=== PATIENT | female | born 1935 | race Caucasian/White ===

== ENCOUNTER 2019-01-27 14:26 | Inpatient (IN) ==
[2019-01-27] MEDS ORDERED: NS 1,000 ML IV ONE ×2 (16:29→23:41)
[2019-01-27] MEDS ORDERED: TYLENOL PO ONE (16:30)
[2019-01-27 16:54] LABS: BASO# 0.01 X1000 (0.0-0.2); BASO% 0.1 % (0.0-0.8); EOS# 0.04 X1000 (0.0-0.7); EOS% 0.5 % (0.0-10.0); HEMATOCRIT 34.6 % (37.0-47.0); HEMOGLOBIN 11.6 g/dL (12.0-16.0); IMM GRAN# 0.02 X1000 (0.0-0.04); IMM GRAN% 0.2 % (0.0-0.5); LYMPH# 0.98 X1000 (1.2-3.4); LYMPH% 12.1 % (20.5-51.1); MCH 29.4 PG (27-31); MCHC 33.5 g/dL (33-37); MCV 87.8 FL (81-99); MONO# 1.08 X1000 (0.11-0.59); MONO% 13.3 % (1.7-9.3); MPV 8.7 FL (7.4-10.4); NEUT# 5.98 X1000 (1.4-6.5); NEUT% 73.8 % (42.2-75.2); PLT 273 X1000 (130-400); RBC 3.94 XMIL (4.2-5.4); RDW 13.5 % (11.5-14.5); WBC 8.11 X1000 (4.8-10.8)
--- NOTE | 2019-01-27 17:17 | EKG Report ---
Test Performed on : 01/27/2019 4:49:43 PM Test Reason : FALLS Blood Pressure : / mmHG Vent. Rate : 079 BPM Atrial Rate : 079 BPM P-R Int : 186 ms QRS Dur : 114 ms QT Int : 406 ms P-R-T Axes : 070 -06 065 degrees QTc Int : 465 ms Normal sinus rhythm. Anterior infarct , age undetermined Abnormal ECG When compared with ECG of 10-NOV-2018 10:28, No significant change was found Unconfirmed Result
[2019-01-27 17:18] LABS: ESTIMATED GFR > 60
[2019-01-27 17:26] LABS: AGAP 12; ALBUMIN 3.6 g/dL (3.5-5.0); ALKALINE PHOSPHATASE 204 U/L (32-104); BUN 10 mg/dL (8-22); CALCIUM 8.3 mg/dL (8.8-10.2); CHLORIDE 89 mmol/L (98-107); COSMO 253; CREATININE 0.7 mg/dL (0.5-0.9); GLUCOSE 115 mg/dL (70-104); GOT 46 U/L (10-30); GPT 25 U/L (10-36); MAGNESIUM 1.9 mg/dL (1.5-2.7); POTASSIUM 3.6 mmol/L (3.5-5.1); SODIUM 126 mmol/L (136-145); TCO2 25 mmol/L (25-35); TOTAL PROTEIN 6.4 g/dL (6.3-8.3)
--- NOTE | 2019-01-27 17:58 | Diag Imaging Result Doc PS360 ---
CT HEAD W/O CONTRAST - 01/27/2019 INDICATION: MULTIPLE FALL COMPARISON: 07/24/2015 FINDINGS: The ventricles and sulci are normal in size and contour. There is some trace periventricular white matter hypodensity most compatible with chronic microvascular disease. No intracranial mass or hemorrhage. The skull is intact. The sinuses are clear. IMPRESSION: Trace periventricular white matter chronic microvascular disease. No acute disease. This exam was performed using automated exposure control, adjustment of mA or kV according to patient size, and/or use of iterative reconstruction technique Electronically signed by Martell Landeros 01/27/2019 5:56 PM
--- NOTE | 2019-01-27 18:34 | Diag Imaging Result Doc PS360 ---
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 There is a right total hip arthroplasty in good position. Vertebral body heights are preserved. No fracture or subluxation. There is mild multilevel degenerative disc disease. There is moderate degeneration of the sacroiliac joints. IMPRESSION: No acute injury. Electronically signed by Martell Landeros 01/27/2019 6:32 PM
--- NOTE | 2019-01-27 18:35 | Diag Imaging Result Doc PS360 ---
HIP W/PELVIS BILAT 2 VIEWS - 01/27/2019 INDICATION: MULTIPLE FALL PELVIC PAIN; HX OF PELVIC FRACTURE TECHNIQUE: Five views COMPARISON: 08/19/2015 FINDINGS: There are displaced fractures through the left superior and inferior pubic rami. No visible hip fracture. No dislocation. There is a right hip arthroplasty in good position. IMPRESSION: Displaced fractures through the left superior and inferior pubic rami. Electronically signed by Martell Landeros 01/27/2019 6:33 PM
[2019-01-27 18:54] LABS: BILIRUBIN URINE NEGATIVE (NEGATIVE); BLOOD URINE NEGATIVE (NEGATIVE); CLARITY CLEAR (CLEAR); COLOR YELLOW; GLUCOSE URINE NEGATIVE (NEGATIVE); KETONE URINE TRACE mg/dL (NEGATIVE); LEUKOCYTES URINE 1+ (NEGATIVE); NITRITE URINE NEGATIVE (NEGATIVE); PROTEIN URINE NEGATIVE (NEGATIVE); SP GRAVITY URINE 1.005; UROBILINOGEN URINE NORMAL
[2019-01-27 19:11] LABS: URINE BACTERIA 2+ /HFP; URINE CAST NONE SEEN /LPF; URINE CRYSTAL NONE SEEN /HPF; URINE EPITHELIAL CELLS <10 /HPF (<10); URINE SOURCE CLEAN CATCH; URINE YEAST NONE SEEN /HPF
[2019-01-27] MEDS ORDERED: BLISTEX MEDICATED BERRY LIP BALM TOP PRN (22:19)
[2019-01-27 23:19] LABS: VITAMIN D 25 HYDROXY 24.3 NG/DL
[2019-01-27] MEDS ORDERED: TYLENOL PO PRN (23:41)
[2019-01-27] MEDS ORDERED: ZOFRAN IV PRN (23:41)
[2019-01-27] MEDS ORDERED: TYLENOL ARTHRITIS PO PRN (23:43)
[2019-01-28] MEDS: ATIVAN PO SCH ×2 (01:26→22:11)
[2019-01-28] MEDS: ARICEPT PO SCH ×3 (01:26→22:12)
[2019-01-28 01:49] LABS: AGAP 10; BUN 6 mg/dL (8-22); CALCIUM 7.9 mg/dL (8.8-10.2); CHLORIDE 94 mmol/L (98-107); COSMO 261; CREATININE 0.6 mg/dL (0.5-0.9); ESTIMATED GFR > 60; GLUCOSE 111 mg/dL (70-104); SODIUM 131 mmol/L (136-145); TCO2 27 mmol/L (25-35)
[2019-01-28] MEDS: SYNTHROID PO SCH (06:17)
[2019-01-28] MEDS ORDERED: KLOR-CON PO ONE (06:55)
[2019-01-28 06:57] LABS: AGAP 11; BUN 5 mg/dL (8-22); CALCIUM 7.7 mg/dL (8.8-10.2); CHLORIDE 95 mmol/L (98-107); COSMO 262; CREATININE 0.5 mg/dL (0.5-0.9); ESTIMATED GFR > 60; GLUCOSE 105 mg/dL (70-104); POTASSIUM 2.9 mmol/L (3.5-5.1); SODIUM 132 mmol/L (136-145); TCO2 27 mmol/L (25-35)
[2019-01-28] MEDS ORDERED: ZOLOFT PO SCH (09:00)
[2019-01-28] MEDS ORDERED: LOSARTAN POTASSIUM 100 MG PO SCH (09:00)
[2019-01-28] MEDS: XARELTO PO SCH (09:49)
[2019-01-28] MEDS: ROBAXIN PO SCH ×2 (09:49→22:12)
[2019-01-28] MEDS: LIDODERM TOP SCH (09:50)
[2019-01-28] MEDS: ULTRAM PO SCH ×2 (11:01→22:12)
[2019-01-28 12:19] LABS: AGAP 10; BUN 4 mg/dL (8-22); CALCIUM 7.7 mg/dL (8.8-10.2); CHLORIDE 93 mmol/L (98-107); COSMO 260; CREATININE 0.5 mg/dL (0.5-0.9); ESTIMATED GFR > 60; GLUCOSE 139 mg/dL (70-104); POTASSIUM 3.2 mmol/L (3.5-5.1); SODIUM 130 mmol/L (136-145); TCO2 27 mmol/L (25-35)
--- NOTE | 2019-01-28 15:08 | HISTORY AND PHYSICAL ---
CHIEF COMPLAINT: Back pain, frequent falls. HISTORY OF PRESENT ILLNESS: This is an 83-year-old female who presented to the emergency room via EMS complaining of low back pain after a fall. The patient was admitted to the hospital in October and actually discharged November 14 after sustaining a superior and inferior pubic rami fracture on the left, along with frequent falls. She was discharged to rehab and according to the chart, she was at rehab for 70 days. She was discharged from rehab approximately 5 days ago to an assisted living facility where she has had multiple falls. According to her triage, the family states that she has not been compliant with her instructions from [facility]. The patient states that her legs are so weak that they just give out and she falls. PAST MEDICAL HISTORY: Hypertension, hypothyroid, hyperlipidemia, and osteoarthritis. PAST SURGICAL HISTORY: Hysterectomy, thyroidectomy, and right anterior hip replacement. SOCIAL HISTORY: She lives in assisted living. She denies alcohol, tobacco, or illicit drug use. ALLERGIES: Aspirin and NSAIDs which cause GI upset. CURRENT MEDICATIONS: A list will be obtained by the nursing staff and will review and restart as is appropriate. REVIEW OF SYSTEMS: Discussed with the patient with pertinent positives stated in the HPI. She denied any syncope or dizziness, any chest pain, palpitations, shortness of breath, cough, fever, chills, any nausea, vomiting, diarrhea, constipation, black or bloody vomitus or stools, any hematuria, dysuria, frequency, urgency. PHYSICAL EXAMINATION: GENERAL: This is an 83-year-old female who is lying in the bed, in no distress. VITAL SIGNS: Blood pressure is 166/65, with a heart rate of 87, respirations are 18, temperature is 98.4 degrees oral, with room air saturations 97 to 99%. EYES: Pupils are equal, round, react to light. EOMs are intact. Sclerae are anicteric. HENT: Head is normocephalic, atraumatic. Mucous membranes are moist. NECK: Supple with trachea midline. CARDIOVASCULAR: Regular rate and rhythm. S1 and S2 appreciated. She does have some bilateral lower extremity edema. Calves are nontender to palpation, with peripheral pulses palpable x4 extremities. PULMONARY: Breath sounds are clear with no increased work of breathing noted. Chest rises and falls symmetrically with respiration. GASTROINTESTINAL: Abdomen is soft, nontender, nondistended. Bowel sounds in all 4 quadrants. GENITOURINARY: She has no CVAT nor suprapubic tenderness. NEUROLOGIC: She is alert and oriented x3. SKIN: Warm and dry with bruises noted to her left lower leg, right upper forearm, left upper chest, and low back. LABS: WBC is 8.1, with hemoglobin 11.6, hematocrit 34.6, platelets 273,000. Sodium 126, potassium 3.6, BUN 10, creatinine 0.7, with a glucose of 115. Urine culture is pending. ASSESSMENT: This is an 83-year-old female who presents to the emergency room via EMS after falling. 1. Hyponatremia. 2. Recent fracture inferior and superior left rami. 3. Frequent falls. 4. Hypertension. 5. Hypothyroid. 6. Generalized weakness. PLAN: The patient has been admitted to the medical-surgical floor at [facility]. She has been placed on telemetry which we will continue. We will continue to monitor chemistries, trend sodium, and replete as is appropriate. Urine electrolytes have been ordered. Hyponatremia workup is pending. We will identify her home medications and continue as is appropriate. We will consult Physical Therapy. We will trend CBC and BMP in the morning. She will be placed on fall precautions with neuro checks. Further treatments pending hospital course. Dictated by NILAM Brown for Jarod Belle MD This chart was documented by, NILAM Brown and accurately reflects the services performed, treatment plan and medical decisions as attested by the providers signature Jarod Belle MD. cc: NILAM Brown MD
[2019-01-28 17:51] LABS: AGAP 10; BUN 9 mg/dL (8-22); CALCIUM 7.7 mg/dL (8.8-10.2); CHLORIDE 93 mmol/L (98-107); COSMO 258; CREATININE 0.6 mg/dL (0.5-0.9); ESTIMATED GFR > 60; GLUCOSE 104 mg/dL (70-104); POTASSIUM 3.6 mmol/L (3.5-5.1); SODIUM 129 mmol/L (136-145); TCO2 26 mmol/L (25-35)
[2019-01-28] MEDS ORDERED: ATIVAN PO SCH (21:00)
--- NOTE | 2019-01-28 22:31 | HISTORY AND PHYSICAL ---
ADDENDUM: Patient seen and examined by myself. Full note dictated and discussed with nurse practitioner. The patient lives in assisted living. Unfortunately, she has been falling very frequently. She has just recently fallen and has a fracture to her left superior and inferior pubic rami. Potassium is noted low at 3.0 and sodium at 131. We will admit her to the hospital with IV fluids, replace her potassium, get physical therapy involved, pain control and will follow. cc: Jarod Belle MD
[2019-01-29] MEDS: SYNTHROID PO SCH (06:31)
[2019-01-29 06:38] LABS: BASO# 0.01 X1000 (0.0-0.2); BASO% 0.2 % (0.0-0.8); EOS# 0.03 X1000 (0.0-0.7); EOS% 0.7 % (0.0-10.0); HEMATOCRIT 34.6 % (37.0-47.0); HEMOGLOBIN 11.1 g/dL (12.0-16.0); IMM GRAN# 0.02 X1000 (0.0-0.04); IMM GRAN% 0.5 % (0.0-0.5); LYMPH# 0.76 X1000 (1.2-3.4); LYMPH% 17.4 % (20.5-51.1); MCH 28.4 PG (27-31); MCHC 32.1 g/dL (33-37); MCV 88.5 FL (81-99); MONO# 0.74 X1000 (0.11-0.59); MONO% 16.9 % (1.7-9.3); NEUT# 2.82 X1000 (1.4-6.5); NEUT% 64.3 % (42.2-75.2); PLT 239 X1000 (130-400); RBC 3.91 XMIL (4.2-5.4); RDW 13.8 % (11.5-14.5); WBC 4.38 X1000 (4.8-10.8)
[2019-01-29 06:59] LABS: AGAP 11; BUN 7 mg/dL (8-22); CALCIUM 8.1 mg/dL (8.8-10.2); CHLORIDE 93 mmol/L (98-107); COSMO 261; CREATININE 0.5 mg/dL (0.5-0.9); ESTIMATED GFR > 60; GLUCOSE 112 mg/dL (70-104); POTASSIUM 3.1 mmol/L (3.5-5.1); SODIUM 131 mmol/L (136-145); TCO2 26 mmol/L (25-35)
[2019-01-29] MEDS: LIDODERM TOP SCH (09:33)
[2019-01-29] MEDS: XARELTO PO SCH (09:34)
[2019-01-29] MEDS: ROBAXIN PO SCH ×2 (09:34→20:49)
[2019-01-29] MEDS: ULTRAM PO SCH ×2 (09:34→20:48)
[2019-01-29] MEDS: ARICEPT PO SCH ×2 (09:34→20:50)
[2019-01-29] MEDS: ATIVAN PO SCH (20:49)
--- NOTE | 2019-01-29 22:15 | PROGRESS NOTE ---
DATE: 01/29/2019 SUBJECTIVE: Patient has no new complaints. Still has pain in her hip. Has not really been out of bed. Denies any fevers or chills. OBJECTIVE: Vital Signs: Temperature 98.2, pulse 105, respiratory rate 20, BP 151/55. General: Patient is awake, very pleasant to talk with. She is in no respiratory distress. HEENT: Normocephalic. Neck: Supple. Cardiovascular: Regular rate. Chest: Clear. Abdomen: Soft. Extremities: Moves all extremities. ASSESSMENT: 1. Hyponatremia. 2. Recent fracture inferior superior pubic left rami. 3. Hypertension. 4. Hypothyroidism. PLAN: We will continue physical therapy and pain control. Follow her labs. Further orders as needed. cc: Jarod Belle MD
[2019-01-30] MEDS: SYNTHROID PO SCH (06:10)
[2019-01-30 06:50] LABS: BASO# 0.01 X1000 (0.0-0.2); BASO% 0.3 % (0.0-0.8); EOS# 0.06 X1000 (0.0-0.7); EOS% 1.7 % (0.0-10.0); HEMATOCRIT 33.7 % (37.0-47.0); HEMOGLOBIN 10.9 g/dL (12.0-16.0); IMM GRAN# 0.01 X1000 (0.0-0.04); IMM GRAN% 0.3 % (0.0-0.5); LYMPH# 0.92 X1000 (1.2-3.4); LYMPH% 25.6 % (20.5-51.1); MCH 29.1 PG (27-31); MCHC 32.3 g/dL (33-37); MCV 90.1 FL (81-99); MONO# 0.67 X1000 (0.11-0.59); MONO% 18.6 % (1.7-9.3); MPV 8.9 FL (7.4-10.4); NEUT# 1.93 X1000 (1.4-6.5); NEUT% 53.5 % (42.2-75.2); PLT 236 X1000 (130-400); RBC 3.74 XMIL (4.2-5.4); RDW 14.3 % (11.5-14.5)
[2019-01-30 07:14] LABS: AGAP 11; BUN 9 mg/dL (8-22); CALCIUM 7.8 mg/dL (8.8-10.2); CHLORIDE 98 mmol/L (98-107); COSMO 273; CREATININE 0.6 mg/dL (0.5-0.9); ESTIMATED GFR > 60; GLUCOSE 107 mg/dL (70-104); POTASSIUM 3.3 mmol/L (3.5-5.1); SODIUM 137 mmol/L (136-145); TCO2 28 mmol/L (25-35)
[2019-01-30] MEDS: XARELTO PO SCH (09:41)
[2019-01-30] MEDS: NAMENDA PO SCH ×2 (09:41→20:31)
[2019-01-30] MEDS: ULTRAM PO SCH ×2 (09:41→20:31)
[2019-01-30] MEDS: ARICEPT PO SCH ×2 (09:41→20:30)
[2019-01-30] MEDS: ROBAXIN PO SCH ×2 (09:41→20:31)
[2019-01-30] MEDS: LIDODERM TOP SCH (09:41)
[2019-01-30] MEDS ORDERED: CALMOSEPTINE OINTMENT TOP PRN (10:05)
--- NOTE | 2019-01-30 16:28 | Diag Imaging Result Doc PS360 ---
EXAM: CHEST-PORTABLE INDICATION: rehab TECHNIQUE: One view COMPARISON: 11/12/2018 FINDINGS: The lungs are grossly clear. There is no discrete pleural fluid collection or pneumothorax. The cardiomediastinal silhouette and central vasculature are grossly unremarkable. IMPRESSION: No evidence of acute pathology by plain radiograph. Electronically signed by Mac Nguyen 01/30/2019 4:26 PM
[2019-01-30] MEDS: MYCELEX TROCHE PO SCH ×2 (18:11→20:37)
[2019-01-30] MEDS: ATIVAN PO SCH (20:30)
--- NOTE | 2019-01-30 23:06 | PROGRESS NOTE ---
DATE: 01/30/2019 SUBJECTIVE: Patient has no new complaints. States that she is feeling okay. She has not really been able to be out of bed. She still has lots of pain in her hip. PHYSICAL EXAM: Vital signs: Temperature 98.2 degrees, pulse 105, respiratory 18, BP 151/65. General: Patient is awake. HEENT: Normocephalic. Neck: Supple. CARDIOVASCULAR: Regular rate. Chest: Clear. Abdomen: Soft. Extremities: Moves all extremities. Still has pain in the left hip. ASSESSMENT: 1. Hyponatremia. 2. Fracture inferior superior left pubic rami. 3. Frequent falls. 4. Hypertension. 5. Hypothyroidism. 6. Generalized weakness. PLAN: Continue physical therapy. Expect the patient will need to continue physical therapy, will likely need rehab. Will continue to follow. cc: Jarod Belle MD
[2019-01-31 06:03] LABS: BASO# 0.01 X1000 (0.0-0.2); BASO% 0.3 % (0.0-0.8); EOS% 2.6 % (0.0-10.0); HEMATOCRIT 34.2 % (37.0-47.0); IMM GRAN# 0.02 X1000 (0.0-0.04); IMM GRAN% 0.5 % (0.0-0.5); LYMPH# 1.08 X1000 (1.2-3.4); LYMPH% 27.8 % (20.5-51.1); MCH 29.1 PG (27-31); MCHC 32.2 g/dL (33-37); MCV 90.5 FL (81-99); MONO# 0.56 X1000 (0.11-0.59); MONO% 14.4 % (1.7-9.3); MPV 8.9 FL (7.4-10.4); NEUT# 2.12 X1000 (1.4-6.5); NEUT% 54.4 % (42.2-75.2); PLT 253 X1000 (130-400); RBC 3.78 XMIL (4.2-5.4); RDW 14.4 % (11.5-14.5); WBC 3.89 X1000 (4.8-10.8)
[2019-01-31] MEDS: SYNTHROID PO SCH (06:17)
[2019-01-31 06:23] LABS: AGAP 9; BUN 8 mg/dL (8-22); CALCIUM 7.7 mg/dL (8.8-10.2); CHLORIDE 98 mmol/L (98-107); COSMO 269; CREATININE 0.5 mg/dL (0.5-0.9); ESTIMATED GFR > 60; GLUCOSE 101 mg/dL (70-104); POTASSIUM 3.2 mmol/L (3.5-5.1); SODIUM 135 mmol/L (136-145); TCO2 28 mmol/L (25-35)
[2019-01-31] MEDS ORDERED: KLOR-CON PO ONE (06:59)
[2019-01-31 07:44] VITALS: BP 174/72
[2019-01-31] MEDS: MYCELEX TROCHE PO SCH (08:31)
[2019-01-31] MEDS: LIDODERM TOP SCH (08:31)
[2019-01-31] MEDS: ROBAXIN PO SCH (08:31)
[2019-01-31] MEDS: XARELTO PO SCH (08:31)
[2019-01-31] MEDS: ARICEPT PO SCH (08:32)
[2019-01-31] MEDS: NAMENDA PO SCH (08:32)
--- NOTE | 2019-01-31 10:31 | DISCHARGE SUMMARY ---
ADMISSION DATE: 01/28/2019 DISCHARGE DATE: 01/31/2019 DIAGNOSES: 1. Hyponatremia, resolved. 2. Recent fracture inferior and superior pubic left rami. 3. Hypertension. 4. Hypothyroid. 5. Generalized weakness with frequent falls. DIAGNOSTICS: 1. CT of the head revealed trace periventricular white matter, chronic microvascular disease. No acute disease. 2. X-ray of bilateral hip and pelvis revealed displaced fractures through the left superior and inferior pubic rami. No dislocation. There is a right hip arthroplasty in good shape. 3. Lumbar spine x-ray revealed no acute injury. There is mild rotary scoliosis and S-shaped scoliosis. There is a total right hip arthroplasty in good condition. Vertebral body heights are preserved. No fracture or subluxation. There is mild multilevel degenerative disk disease. 4. Chest x-ray revealed no evidence of acute pathology by plain radiograph. HOSPITAL COURSE: Ms. Tesfaye presented to the emergency room after having multiple falls over the prior 4 to 5 days. She had been discharged from rehab after a 70 day stay 5 days prior to this admission. After a 70 day stay to an assisted living facility, she was found to have a sodium of 126 at that time. It has increased to 135 to 137. Physical Therapy has been working with the patient. Thankfully, she is ready for discharge to rehab. DISCHARGE EXAMINATION: Vital Signs: Blood pressure is 170/72 with a heart rate of 72, respirations are 18, temperature is 98 degrees oral with room air saturations of 98%. Cardiovascular: Regular rate and rhythm. S1 and S2 are appreciated. She has some pretibial edema bilateral. Calves are nontender to palpation. Peripheral pulses are palpable x4 extremities. Lungs: Breath sounds, she does have some scattered expiratory wheezes with no increased work of breathing noted. Gastrointestinal: Abdomen is soft, nontender, and nondistended with bowel sounds in all 4 quadrants. Neurologic: She is alert and oriented. DISCHARGE MEDICATIONS: 1. Mycelex Troches 10 mg 5 times a day. 2. Aricept 5 mg p.o. daily. 3. Aricept 10 mg p.o. at bedtime. 4. Levothyroxine 150 mcg p.o. daily. 5. Lidoderm patch as directed. 6. Lorazepam 0.5 mg p.o. at bedtime. 7. Losartan 100 mg p.o. daily. 8. Robaxin 750 p.o. b.i.d. 9. Xarelto 10 mg p.o. daily. 10. Zoloft 100 mg p.o. daily. 11. Tramadol 50 mg p.o. b.i.d. LABORATORY: She will need a CBC and chemistries drawn in 4 to 5 days. These can be followed up and treat as warrants per results per the facility director. DISPOSITION: She is being discharged to rehab in stable condition. TIME SPENT: This is a greater than 30 minute discharge. Dictated by NILAM Brown for Jarod Belle MD This chart was documented by, NILAM Brown and accurately reflects the services performed, treatment plan and medical decisions as attested by the providers signature Jarod Belle MD. cc: NILAM Brown MD
--- NOTE | 2019-02-01 02:21 | DISCHARGE SUMMARY ---
ADMISSION DATE: 01/28/2019 DISCHARGE DATE: 01/31/2019 ADDENDUM: Patient seen and examined by myself. Full note dictated and discussed with nurse practitioner. On discharge, patient is awake. She appears to be at her baseline mental status. She does have dementia. She is on Aricept. We have added Namenda. The Namenda may need to be increased in the future. We will continue to follow. Further orders as needed. Please see full dictation. cc: Jarod Belle MD
== END 2019-01-31 12:36 | DRG 641 ==
LOC: P.ED 14:26 → P.MEDSURG 14:26 → SUATTDRO 20:29
PROVIDERS: ATTEND Family Medicine
CPT/HCPCS: 36415; 70450; 71010; 71045; 72110; 73521; 80048; 80053; 81001; 82306; 82607; 83735; 83935; 84300; 85025; 87088; 93005; 97163; 99285; A9270; J7030